=== PATIENT | male | born 1955 | race Caucasian/White ===

== ENCOUNTER 2025-07-29 11:29 | Emergency (ER) | payer OTHER, SELFPAY ==
--- OUTSIDE RECORDS SUMMARY | 2024-08-29 03:00 | XMS_ITS ---
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 * Medical History: Objective: * Vitals: Assessment: Plan: * Treatment: * Billing Information: * Visit Code: * Procedure Codes: * Electronic signature of Prov ider Migration on 07/29/2025 at 12:48 PM AGRICULTURE INTERNSHIP Sign off status: Pending * Provider: Irina Mendoza Date: 0 08/29/2024 Generated for Kamlesh booker/Magy/Nitin on: 1 09/29/2024 12:48 PM AGRICULTURE INTERNSHIP
--- OUTSIDE RECORDS SUMMARY | 2024-08-29 03:00 | XMS_ITS ---
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 * Medical History: Objective: * Vitals: Assessment: Plan: * Treatment: * Billing Information: * Visit Code: * Procedure Codes: * Electronic signature of Prov ider Migration on 07/29/2025 at 12:47 PM CATTLE DIPPER Sign off status: Pending * Provider: Irina castrejon Migration Date: 0 08/29/2024 Generated for Kamlesh booker/Magy/Nitin on: 1 09/29/2024 12:47 PM CATTLE DIPPER
--- OUTSIDE RECORDS SUMMARY | 2024-08-29 10:00 | XMS_ITS ---
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 * Medical History: Objective: * Vitals: Assessment: Plan: * Treatment: * Billing Information: * Visit Code: * Procedure Codes: * Electronic signature of Prov ider Migration on 07/29/2025 at 12:49 PM ELECTRIC KNIFE OPERATOR Sign off status: Pending * Provider: Irina castrejon Migration Date: 0 08/29/2024 Generated for Kamlesh booker/Magy/Nitin on: 1 09/29/2024 12:49 PM ELECTRIC KNIFE OPERATOR
--- OUTSIDE RECORDS SUMMARY | 2024-12-19 05:00 | XMS_ITS ---
Author Organization [facility] Address [address] [place] [address] Care Team Providers Care Nail Technician Name Role Phone Sherine Villagran MD Primary Care Provider Ralph Hernandez [phone] REASON FOR VISIT right radial approach lhc possible ptca 12/19/2024 @ 11am, check in at 9am//gs Encounters Encounter Location Date Provider Diagnosis [facility] [address] [place] [address] 12/19/2024 Ralph Fox Plan Of Treatment No Information Progress Notes * Dougie KEATING SrDOB:1954 (70 yo M)Acc No.[id number]:12/19/2024 [place] Patient: Yanira Dougie guzman Sr Provider: Heath Fox MD :1955 A ge:69 Y S ex:Male Date:12/19/2024 [facility] [facility] [id number] Pcp:Sherine Villagran MD Subjective: * Chief Complaints: * R ight radial approach lhc possible ptca 12/19/2024 @ 11am, check in at 9am//gs Billing Information: * Procedure Codes: * Electronic signature of Joaquin Fox MD on 07/29/2025 at 12:49 PM COMPUTER SALESPERSON RETAIL Sign off status: Pending * Provider: Heath Fox MD Date: 0 12/19/2024 Generated for Kamlesh booker/Magy/Nitin on: 1 09/29/2024 12:49 PM COMPUTER SALESPERSON RETAIL
--- OUTSIDE RECORDS SUMMARY | 2025-01-16 07:15 | XMS_ITS ---
Author Organization [facility] Address [address] [facility] [place] [address] Care Team Providers Care Pin Ticket Machine Operator Name Role Phone Sherine Villagran MD Primary Care Provider Unavaila [facility], Ralph Unavailable [phone] Ladi Conn Unavailable [phone] REASON FOR VISIT 4 WK HFU PER CAMP 12/10/24 RQ Encounters Encounter Location Date Provider Diagnosis [facility] [address] [place] [address], [place] [address] 01/16/2025 Ladi Conn Plan Of Treatment No Information Progress Notes * Dougie KEATING SrDOB:1954 (70 yo M)Acc No.[id number]:01/16/2025 Patient: Yanira Dougie guzman Sr Provider: Dipika Conn NP :1955 A ge:69 Y S ex:Male Date:01/16/2025 Address:[address] [facility], [id number] Pcp:Sherine Villagran MD Subjective: * Chief Complaints: * 4 WK HFU PER CAMP 12/10/24 RQ * Electronic signature of LOBO Steiner, EMBEDDER-C on 07/29/2025 at 12:48 PM COMMERCIAL LOAN ADMINISTRATOR Sign off status: Pending * Provider: Dipika Conn NP Date: 0 01/16/2025 Generated for Printi ng/Farodolfog/eTransmitting on: 1 09/29/2024 12:48 PM COMMERCIAL LOAN ADMINISTRATOR
--- OUTSIDE RECORDS SUMMARY | 2025-05-26 07:30 | XMS_ITS ---
Author Organization [facility] Address [address] [facility] [place] [address] Care Team Providers Care Maintenance And Repair Worker Name Role Phone Sherine Villagran MD Primary Care Provider Ralph Hernandez [phone] Encounters Encounter Location Date Provider Diagnosis [facility] [address] [place] [address], [place] [address] 05/26/2025 Ralph Fox Plan Of Treatment No Information Progress Notes * Dougie KEATING SrDOB:1954 (70 yo M)Acc No.[id number]:05/26/2025 Patient: Dougie Clemons Sr Provider: Heath Fox MD :1955 A ge:70 Y S ex:Male Date:05/26/2025 [facility] [facility] [facility] [id number] Pcp:Sherine Villagran MD Billing Information: * Procedure Codes: * Electronic signature of Joaquin Fox MD on 07/29/2025 at 12:47 PM FREIGHT ENGINEER Sign off status: Pending * Provider: Heath Fox MD Date: Generated for Kamlesh booker/Magy/eTransmitting on: 09/29/2024 12:47 PM FREIGHT ENGINEER
[2025-07-29 11:42] VITALS: BP 169/78; PULSE 62; RESP 14; TEMP 36.4; O2SAT 99; BMI 31.3
--- NOTE | 2025-07-29 11:47 | ECG_ITS ---
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 Measurements Intervals Munday Rate: 56 P: 20 AK: 154 QRS: -20 QRSD: 110 T: 58 QT: 449 QTc: 435 Interpretive Statements SINUS BRADYCARDIA MODERATE ST DEPRESSION [0.05+ mV ST DEPRESSION] No previous ECG available for comparison Electronically Signed On 07-29-2025 21:22:48 FRONT DESK MANAGER by Michelle Moreno M.D. [email or web address]
--- NOTE | 2025-07-29 12:01 | CT_ITS ---
WS: [id number] CT HEAD TECHNIQUE: Noncontrast CT of the head obtained from the skullbase to the vertex. CLINICAL INFORMATION: vertigo COMPARISON: None. DLP: 1120.[address] scans at [facility] use at least one of these dose optimization techniques: automated exposure control; mA and/or kV adjustment per patient size (includes targeted exams where dose is matched to clinical indication); or iterative reconstruction. FINDINGS: No evidence of intracranial hemorrhage or mass effect. Ventricular system and basal cisterns are patent. Mild small vessel changes with mild parenchymal volume loss. No extra-axial fluid collections. No evidence of mass or mass effect. Vascular calcification. Paranasal sinuses and mastoid air cells are well aerated. .Normal visualized soft tissues. CT/CT head wo con* 68024 IMPRESSION: 1. No evidence of intracranial hemorrhage or mass effect. 2. No acute intracranial findings.
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
[2025-07-29 12:26] LABS: Hematocrit 42.0 % (37-53); Hemoglobin 14.20 g/dL (11.27-16.99); Mean Corpuscular HGB Conc 33.8 g/dL (30-55); Mean Corpuscular Hemoglobin 31.8 pg (27-33); Mean Corpuscular Volume 94.0 fl (82-101); Nucleated Red Blood Cells % 0 %; Platelet Count 228 10^3/cmm (157-399); Red Blood Count 4.47 10^6/uL (3.85-5.65); White Blood Count 6.30 10^3/uL (3.29-11.43)
[2025-07-29 12:42] LABS: Alanine Aminotransferase 22 U/L (0-41); Albumin Level 4.5 g/dL (3.5-5.2); Alkaline Phosphatase 52 U/L (40-130); Anion Gap 15.6 (5-19); Aspartate Amino Transferase 22 U/L (0-40); Blood Urea Nitrogen 13 mg/dL (8-23); Calcium 9.5 mg/dL (8.5-10.5); Carbon Dioxide 27 mmol/L (22-29); Chloride 99 mmol/L (98-107); Globulin 2.5 g/dL (1.3-4.6); Glucose 93 mg/dL (65-115); Osmolality Calculated 286 mOsm/kg (285-295); Potassium 3.6 mmol/L (3.5-5.1); Sodium 138 mmol/L (136-145); Total Protein 7.0 g/dL (6.6-8.7)
--- OUTSIDE RECORDS SUMMARY | 2025-07-29 12:47 | XMS_ITS | Encounter Summary ---
Author Organization [facility] Address 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
--- OUTSIDE RECORDS SUMMARY | 2025-07-29 12:47 | XMS_ITS | Encounter Summary ---
Author Organization [facility] Address 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
--- OUTSIDE RECORDS SUMMARY | 2025-07-29 12:47 | XMS_ITS | Encounter Summary ---
Author Organization [facility] Address 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
--- OUTSIDE RECORDS SUMMARY | 2025-07-29 12:47 | XMS_ITS | Encounter Summary ---
Author Organization [facility] Address 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
--- OUTSIDE RECORDS SUMMARY | 2025-07-29 12:47 | XMS_ITS | Encounter Summary ---
Author Organization [facility] Address 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
--- OUTSIDE RECORDS SUMMARY | 2025-07-29 12:47 | XMS_ITS | Encounter Summary ---
Author Organization [facility] Address 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
--- OUTSIDE RECORDS SUMMARY | 2025-07-29 12:47 | XMS_ITS | Encounter Summary ---
Author Organization [facility] Address 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
--- OUTSIDE RECORDS SUMMARY | 2025-07-29 12:47 | XMS_ITS | Encounter Summary ---
Author Organization [facility] Address [address] [place] [address] Care Team Providers Care Able Bodied Seaman Name Role Phone Solo Valdez DO Primary Care Provider Encounter Details Date Type Department Care Team (Late st Contact Info) Description 10/20/[address] 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
--- OUTSIDE RECORDS SUMMARY | 2025-07-29 12:47 | XMS_ITS | Patient Health Record ---
Author Organization [facility] Address [address] [place], [place] [address] Care Team Providers Care Load Dropper Name Role Phone Sherine Nair MD Primary Care Provider Unavaila HOPE Cherry Unavailable [phone] Migration, Provider Unavailable Unavailable Allergies Allergen (clinical drug ingredient) Drug/Non Drug Allergy documented on EMR Reaction Allergy Type Onset Date Status Iodinated contrast media (substance) Iodinated Diagnostic Agents rash Drug Allergy Active Reason For Referral No Information Medications Medication SIG (Take, Route, Frequency, Duration) Notes Start Date End Date Status Co Q 10 100 MG 400 mg Orally daily Active FLUoxetine HCl 10 MG 1 capsule Orally On ce a day Active Spironolactone 25 MG 1 tablet Orally Onc e a day Active Pantoprazole Sodium 20 MG 1 tablet Orall y Once a day Active Rosuvastatin Calcium 40 MG 1 tablet Oral ly Once a day Active Lisinopril 20 MG 1 tablet Orally Evening Active amLODIPine Besylate 10 MG 1 tablet Orally Morning Active Aspirin Adult Low Dose 81 MG 1 tablet Or ally Once a day Active Fish Oil 1000 MG 1 capsule Orally Twi ce a day Active Plavix 75 MG 1 tablet Orally Once a day; Duration: 30 day(s) Active Immunizations Vaccine Route Administration Date Status Comme nts Influenza (whole), CPT 83039 Inactive Unknown 08/14/2015 Administered Influenza, seasonal, injectable (split), for 3 yrs and up IM Intramuscular 06/01/2021 Administered [facility]# [id number] Pt waited 20 minutes after injection with no ASE noted. Problems Problem Type SNOMED Code ICD Code Onset Dates Problem Status W/U Status Risk Notes Problem Essential hypertension (48218922) Essential hypertension (I10) Active confirmed Problem Prostatectomy (77434966) Status post prostatectomy (Z90.79) Active confirmed Problem Mild cognitive impairment (942773416) Mild cognitive impairment (G31.84) Active confirmed Problem Cancer of prostate (317214293) Cancer of prostate (C61) Active confirmed Problem Occlusion of right vertebral artery (377710060009410) Occlusion of right vertebral artery (I65.01) Active confirmed Problem SI - Stress incontinence (81529097) Stress incontinence (N39.3) Active confirmed Problem History of polyp of colon (situation) (134703145) History of colon polyps (Z86.010) Active confirmed Problem Vertebrobasilar insufficiency (49909532) Vertebrobasilar insufficiency (G45.0) Active confirmed Problem Occlusion and stenosis of multiple and bilateral cerebral arteries (831104540) Bilateral carotid artery stenosis (I65.23) Active confirmed Problem Dizziness (020976199) Dizziness (R42) Active confirmed Problem Erectile dysfunction (236092302) Erectile dysfunction (N52.9) Active confirmed Problem Malignant tumor of prostate (500575888) Prostate cancer (C61) Active confirmed Problem Gastroesophageal reflux disease (910926453) Gastroesophageal reflux disease, esophagitis presence not specified (K21.9) Active confirmed Encounters Encounter Location Date Provider Diagnosis [facility], [facility] [address] [place] [address] 08/29/2024 Provider Migration [facility], [facility] [address] [facility] [address] [place] [address] 08/29/2024 Provider Migration [facility], [facility] [address] [facility] [address] [place] [address] 08/29/2024 Provider Migration Plan Of Treatment Pending Test Test Name Order Date PSA, total (cpt 83421) 05/04/2023 Blood Urea Nitrogen (BUN) 04514 09/02/19 22 Creatinine (B) 61013 09/02/2021 PSA Diagnostic--73804 03/03/2021 PSA Diagnostic--87692 06/29/2021 Biopsy-Pathology 12/31/2020 CTA Neck w/ + w/o Contrast-50741 022 US Carotid Doppler Bilateral-36759 09/01 US Carotid Doppler Bilateral-24172 09/01 US Carotid Doppler Bilateral-19740 09/01 Electrocardiogram 12 Lead Tracing-99348 02/24/2021 Electrocardiogram (EKG) - 19204 08/22/19 23 zzCOLONOSCOPY, HIGH RISK SCREENING--G010 5 10/25/2019 Future Test Test Name Order Date CTA Neck w/ + w/o Contrast-85541 021 PSA Diagnostic--45990 12/09/2022 Insurance Providers Payer Name Payer Address Payer Phone Subscriber Number Group Number Insured Name Patient Relationship to Insured Coverage Start Date Coverage End Date [employer] [address] [place], [place] [id number] [phone] [id number] Dougie Stockton Self - patient is the insured [place] Medicare [address] [place], [place] [phone] [id number] Dougie Stockton Self - patient is the insured for Life Secondary to Medicare [address] [place], [place] [phone] [id number] Kath, Dougie Self - patient is the insured Medical (General) History Medical History History ICD Code Arthritis Hypertensive disorder, systemic arterial Polyp of colon melanoma - [facility] degenerative disc disease anxeity depression Hyperlipidemia GERD mild mi on stress test tremor to R hand - saw dr sorto memory loss Prostate Cancer Covid vaccine x2 Surgical History Surgery Date(Month/Year) cholecystectomy - dr rangel excision of melanoma, back polyp removed Prostatectomy + Prostate CA RALP with bilateral pelvic lymph node re section Hospitalization History Reason Date(Month/Year) See surgical history gallbladder
--- OUTSIDE RECORDS SUMMARY | 2025-07-29 12:48 | XMS_ITS | Encounter Summary ---
Author Organization [facility] Address 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
--- OUTSIDE RECORDS SUMMARY | 2025-07-29 12:48 | XMS_ITS | Encounter Summary ---
Author Organization [facility] Address [address] [place] [address] Care Team Providers Care Um Specialist Name Role Phone Solo Valdez DO Primary Care Provider [phone] Encounter Details Date Type Department Care Team (Late st Contact Info) Description 12/21/[address] 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
--- OUTSIDE RECORDS SUMMARY | 2025-07-29 12:48 | XMS_ITS | Encounter Summary ---
Author Organization [facility] Address 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
--- OUTSIDE RECORDS SUMMARY | 2025-07-29 12:48 | XMS_ITS | Patient Health Record ---
Author Organization [facility] Address [address] [place] [address] Care Team Providers Care University Administrative Assistant Name Role Phone Sherine Villagran MD Primary Care Provider Unavaila héctor Fox, Ralph Unavailable [phone] Ladi Conn Unavailable [phone] Marshall Clayton Unavailable [phone] Sherley Mazariegos Unavailable [phone] Allergies Allergen (clinical drug ingredient) Drug/Non Drug Allergy documented on EMR Reaction Allergy Type Onset Date Status Iodinated contrast media (substance) Iodinated Diagnostic Agents rash Drug Allergy Active Results Component Value Reference Range Flag Notes Schedule Confirmation Reviewed date:12/23/2024 07:59:12 AM Interpretation: Performing Lab: Notes/Report: Heart Cath Lt poss PTCA Schedule Confirmation Reviewed date:12/11/2024 08:23:56 AM Interpretation: Performing Lab: Notes/Report: Heart Cath Lt poss PTCA Prothrombin Time 09557 Reviewed date:12/23/2024 07:59:22 AM Interpretation: Performing Lab: Notes/Report: ProTime 10.4 9.1-11.9 SEC Normal Range : 9.1-11.9 INR .98 .90-1.20 Therapeutic Range: 2.0-3.0 Therapaeutic Range for heart valve replacement: 2.5-3.50 Partial Thromboplastin Time 03590 Reviewed date:12/23/2024 07:59:22 AM Interpretation: Performing Lab: Notes/Report: PTT 22.4 22.6-31.8 SEC LOW Critical Value Starting at > 100. Therapeutic Range: 60-100. zzzHeart Cath Lt poss PTCA Reviewed date:12/23/2024 07:59:22 AM Interpretation: Performing Lab: Notes/Report: ief=[id number]&org=iSite Schedule Confirmation Reviewed date:12/11/2024 08:23:56 AM Interpretation: Performing Lab: Notes/Report: Heart Cath Lt poss PTCA Schedule Confirmation Reviewed date:12/11/2024 08:23:56 AM Interpretation: Performing Lab: Notes/Report: Heart Cath Lt poss PTCA Schedule Confirmation Reviewed date:12/11/2024 08:23:56 AM Interpretation: Performing Lab: Notes/Report: Heart Cath Lt poss PTCA zzzHeart Cath Lt poss PTCA Reviewed date:12/23/2024 07:59:12 AM Interpretation: Performing Lab: Notes/Report: See Below For Report This report was dictated outside of the Cia[employer] system. Read See Below For Report WBC Auto Diff--85182 Reviewed date:12/23/2024 07:59:22 AM Interpretation: Performing Lab: Notes/Report: Added by Discern Rules Neutro Auto% 93.2 40.0-70.0 % HI Lymph Auto% 5.4 22.0-44.0 % LOW Freestone Auto% .9 3.0-7.0 % LOW Eos Auto% .0 2.0-4.0 % LOW Baso Auto% 0.1 0.0-1.0 % NRBC% .00 .00-.20 /100 intact WBC's Neutro Abs 10.41 .80-7.70 HI Absolute Neutrophil Count 34794 NA Lymph Abs .60 .10-4.10 Freestone Abs .10 .20-1.00 LOW Eos Abs .00 .00-.40 Baso Abs .01 .00-.20 NRBC# .00 .00-.20 Imm Gran Abs .04 .00-.10 Imm Gran% .4 .0-.4 % CBC Reflex Man Diff 53355, 8 5007 Reviewed date:12/23/2024 07:59:22 AM Interpretation: Performing Lab: Notes/Report: WBC 11.2 4.5-11.0 X10'3 HI RBC 4.44 4.50-5.90 X10'6 LOW Hgb 13.9 13.5-17.5 G/DL Hct 41.7 41.0-53.0 % MCV 93.9 80.0-100.0 FL MCH 31.3 27.0-31.0 PG HI MCHC 33.3 31.0-37.0 G/DL Platelet 219 150-400 X10'3 RDW-SD 43.0 35.0-49.0 FL RDW-CV 12.2 12.2-15.6 % MPV 10.6 9.2-12.0 FL Review Auto Diff Conf Basic Metabolic Panel (BMP) 80557 Reviewed date:12/23/2024 07:59:22 AM Interpretation: Performing Lab: Notes/Report: Sodium 135 136-145 MMOL/L LOW Potassium 4.0 3.5-5.1 MMOL/L Chloride 101 98-107 MMOL/L CO2 26.6 20.0-31.0 MMOL/L Glucose Serum 164 71-110 MG/DL HI Testing p erformed at [facility], [address] [place] [address] [place] [address]. CLIA ID#: [id number] BUN 16 7-21 MG/DL Creat 1.01 .57-1.17 MG/DL Use of this assay is not recommended for patients undergoing treatment with phenindione, due to the potential for falsely depressed results. U-nzcflg-o-benzoquinon e imine (NAPQI) is a metabolite of acetaminophen, NAPQI concentrations of apparoximately 10 mg/L correlation to toxic levels of acetaminophen demonstrates a greater than or equil to 10% change in results. NAPQI concentrations greater than this may lead to falsely depressed results for patient samples. GFR 78.8 NA Calculation pe rformed from GFR calculator provided by the [employer]. Glomerular Filtration rate(GRF) is the best overall index of kidney function. Normal GFR varies according to age,sex, body size, and declines with age. The National [employer] recommends using the CKD-EPI Creatinine Equation(2020) to estimate GFR. Anion Gap 11 5-15 BUN/Creat Ratio 15.8 12.0-20.0 % Calcium 9.8 8.7-10.4 MG/DL Osmo Serum,Calculated 285 280-300 MOSM/KG Lipid Panel Reflex DLDL 8003 1 56583 Reviewed date:12/23/2024 07:59:22 AM Interpretation: Performing Lab: Notes/Report: Trig 87 NA 0-4 yr 34-112 5-9 yr 32-105 Borderline High 150-199 Desirable <150 15-19 yr 39-132 10-14 yr 37-131 Very high >=500 High 200-499 Classification Guidelines:Triglyceride s 0-4 yr 22-99 Children: Male Adults: >20yrs 10-14 yr 32-125 5-9 yr 30-101 Children: Female 15-19 yr 37-148 Chol 167 <=200 MG/DL HDL 71 30-72 MG/DL Male: Female: >=20y 40-59 5-9y 38-75 10-14y 37-74 10-14y 37-70 5-9y 36-73 15-19y 30-63 >=20y 40-59 15-19y 35-74 Reference Ranges:HDL CH/HDL 2.3 0.0-4.9 RATIO LDL 78 0-130 MG/DL LDL result is inaccurate , if Trig is >400 mg/dl. See DLDL result. Reason For Referral Reason AUTH CARDI OLOGY/ EVAL & TREAT/ 1 [facility] Diagnosis 1 Nonrheumatic mitral (valve) insufficiency (I34.0) Referring Provider First Name Elma Ko Referring Provider Last Name [place] Referring Provider Speciality [place] Affairs Referred Organization [facility] Referred Provider Ralph Fox Referred Address [address] [place] [id number], Referred Provider Specialty Cardiology Referral Priority Routine Medications Medication SIG (Take, Route, Frequency, Duration) Notes Start Date End Date Status Aspirin Adult Low Dose 81 MG Tablet Delayed Release 1 tablet Orally Once a day Active Co Q 10 100 MG Capsule 400 mg Orally daily Active Rosuvastatin Calcium 40 MG Tablet 1 tablet Orally Once a day Active amLODIPine Besylate 10 MG Tablet 1 tablet Orally Morning Acti ve Spironolactone 25 MG Tablet 1 tablet Ora lly Once a day Active Pantoprazole Sodium 20 MG Tablet Delayed Release 1 tablet Orally Once a day Active Plavix 75 MG Tablet 1 tablet Orally Once a day; Duration: 30 day(s) Active Magnesium Citrate 200 MG Tablet as directed Orally Active Memantine HCl 5 MG Tablet 1 tablet Orall y Once a day Active FLUoxetine HCl 10 MG Capsule 1 capsule O rally Once a day Active Lisinopril 20 MG Tablet 1 tablet Orally Evening Active Fish Oil 1000 MG Capsule 1 capsule Orall y Twice a day Active Immunizations Vaccine Route Administration Date Status Comme nts Influenza (whole), CPT 63693 Inactive Unknown 08/14/2015 Administered Influenza, seasonal, injectable (split), for 3 yrs and up IM Intramuscular 06/01/2021 Administered [facility]# 72931-685-28 Pt waited 20 minutes after injection with no ASE noted. Social History Tobacco Use: Social History Observation Description Date Details (start date - stop date) Former Smoker NA - NA Social History Depression Screening Social Info Question Answer Notes PHQ-9 Little interest or pleasure in doing thin gs Not at all Feeling down, depressed, or hopeless Not at all Trouble falling or staying asleep, or sleeping t oo much Not at all Feeling tired or having little energy Not at all Poor appetite or overeating Not at all Feeling bad about yourself, or that you are a failure, or have let yourself or your family down Not at all Trouble concentrating on thi ngs, such as reading the newspaper or watching television Not at all Moving or speaking so slowly that other people could have noticed. Or the opposite ? being so fidgety or restless that you have been moving around a lot more than usual Not at all Thoughts that you would be b maury off , or of hurting yourself in some way Not at all Total Score 0 Drugs/Alcohol: Social Info Question Answer Notes Alcohol Screen (Audit-C) Did you have a drink containing alcohol in the past year? Yes How often did you have a drink containing alcohol in the past year? 2 to 4 times a month (2 points) How many drinks did you have on a typical day when you were drinking in the past year? 1 or 2 drinks (0 point) Points 2 Interpretation Negative Drugs Have you used drugs other than those for medical reasons in the past 12 months? No Caffeine Intake: admits Drug/Alcohol: Social Info Question Answer Notes AUDIT-C (Standard) Did you have a drink containing alcohol in the past year? Yes How often did you have six or more drinks on one occasion in the past year? Less than monthly (1 point) How many drinks did you have on a typical day when you were drinking in the past year? Declined to specify (0 point) How often did you have a drink containing alcohol in the past year? Declined to specify (0 point) Points 1 Interpretation Negative Tobacco Use: Social Info Question Answer Notes xTobacco Use/Smoking Are you a former smoker How long has it been since you last smoked? 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 Soci al Section Notes: alcohol - rarely caffeine - coffe daily alcohol - rarely caffeine - coffe daily alcohol - rarely caffeine - coffe daily Problems Problem Type SNOMED Code ICD Code Onset Dates Problem Status W/U Status Risk Notes Problem Atherosclerotic heart disease of [place] coronary artery without angina pectoris (669346301312438) Atherosclerotic heart disease of [place] coronary artery without angina pectoris (I25.10) Active confirmed Problem Mitral valve disorder (86296725) Nonrheumatic mitral (valve) insufficiency (I34.0) Active confirmed Problem Essential hypertension (26966758) Essential hypertension (I10) Active confirmed Problem Malignant tumor of prostate (912516764) Prostate cancer (C61) Active confirmed Problem Gastroesophageal reflux disease (683849085) Gastroesophageal reflux disease, esophagitis presence not specified (K21.9) Active confirmed Problem Dizziness (847365228) Dizziness (R42) Active confirmed Problem History of polyp of colon (situation) (906833565) History of colon polyps (Z86.010) Active confirmed Problem Erectile dysfunction (694532401) Erectile dysfunction (N52.9) Active confirmed Problem SI - Stress incontinence (66919103) Stress incontinence (N39.3) Active confirmed Problem Occlusion and stenosis of multiple and bilateral cerebral arteries (243469821) Bilateral carotid artery stenosis (I65.23) Active confirmed Problem Mild cognitive impairment (097344149) Mild cognitive impairment (G31.84) Active confirmed Problem Occlusion of right vertebral artery (678804997067089) Occlusion of right vertebral artery (I65.01) Active confirmed Problem Prostatectomy (49744847) Status post prostatectomy (Z90.79) Active confirmed Problem Vertebrobasilar insufficiency (53467515) Vertebrobasilar insufficiency (G45.0) Active confirmed Vital Signs Heart Rate 65 /min 12/10/2024 Height-cm 175.26 cm 12/10/2024 Oximetry 98 % 12/10/2024 Blood pressure diastolic 82 mm Hg 12/10/2024 Weight-kg 98.02 kg 12/10/2024 Height 69 in 12/10/2024 Blood pressure systolic 146 mm Hg 12/10/2024 Weight 216.1 lbs 12/10/2024 BMI 31.91 kg/m2 12/10/2024 Procedures Procedure Date Ordered Date Performed Result Body Sit e Coronary Angio with Left Heart Cath 12/10/2024 12/10/2024 N/A Encounters Encounter Location Date Provider Diagnosis [facility] [address] [address] 12/19/2024 [facility] [address] [place] [address] 12/10/2024 [facility] Atherosclerotic hear t disease of [place] coronary artery without angina pectoris I25.10 ; Nonrheumatic mitral (valve) insufficiency I34.0 ; Bilateral carotid artery stenosis I65.23 ; Essential hypertension I10 ; Dizziness R42 ; Fatigue R53.83 and SOB (shortness of breath) R06.[address] [place] [address] 12/10/2024 [facility] [address] [place] [address] 08/24/2024 [facility] [address] [place] [address], [place] [address] 08/24/2024 Sherley Mazariegos Assessments Encounter Date Diagnosis (ICD Code) Assessment Notes Treatment Notes Treatment Clinical Notes Section Notes 12/10/2024 Atherosclerotic heart disease of [place] coronary artery without angina pectoris (ICD-10 - I25.10) 12/10/2024 Nonrheumatic mitral (valve) insufficiency (ICD-10 - I34.0) 12/10/2024 Bilateral carotid artery stenosis (ICD-10 - I65.23) 12/10/2024 Essential hypertension (ICD-10 - I10) 12/10/2024 Dizziness (ICD-10 - R42) 12/10/2024 Fatigue (ICD-10 - R53.83) 12/10/2024 SOB (shortness of breath) (ICD-10 - R06.02) 12/10/2024 Other Medical Decision-making process: At this point recommending heart catheterization given the progressive symptoms' limitation he has. Risk include not limited to arterial thrombosis dissection hematoma consult renal failure CVA IA answer despite the risk patient agreed proceed with further plans been results these diagnostic studies. If the cardiac studies are unremarkable further evaluation/be warranted, but I am very concerned about angina, and he has known coronary disease. [id number] VALID 10/03/24 - 06/08/25, [facility] Comprehensive Plan Of Treatment Pending Test Test Name Order Date Prothrombin Time 18769 12/10/2024 Basic Metabolic Panel (BMP) 25011 2024 Blood Urea Nitrogen (BUN) 66724 09/02/19 22 Creatinine (B) 42670 09/02/2021 Lipid Panel Reflex DLDL 03734, 76958 Partial Thromboplastin Time 25046 2024 PSA Diagnostic--94992 03/03/2021 PSA Diagnostic--49227 06/29/2021 CBC Ref[place] Diff 60155, 15111 025 CTA Neck w/ + w/o Contrast-59003 022 US Carotid Doppler Bilateral-02051 09/01 US Carotid Doppler Bilateral-17828 09/01 Electrocardiogram 12 Lead Tracing (EKG)- 82691 12/10/2024 Electrocardiogram 12 Lead Tracing (EKG)- 00889 02/24/2021 Biopsy-Pathology 12/31/2020 Electrocardiogram (EKG) - 75109 12/11/19 25 Insurance Providers Payer Name Payer Address Payer Phone Subscriber Number Group Number Insured Name Patient Relationship to Insured Coverage Start Date Coverage End Date [employer] [address] [place] [address] [id number] Dougie Stockton Self - patient is the insured [place] Medicare [address] [place] [phone] [id number] Dougie Stockton Self - patient is the insured for Life Secondary to Medicare [address] [place] [address] [phone] [id number] Dougie Stockton Self - patient is the insured Medications Administered Medication Instructions Date of Administration Dosage Notes Gentamicin Sulfate 12/31/2020 80 mg [facility] 04 09-1207-15 Medical (General) History Medical History History ICD Code Arthritis Hypertensive disorder, systemic arterial Polyp of colon melanoma - [facility] degenerative disc disease anxeity depression Hyperlipidemia GERD mild mi on stress test tremor to R hand - saw dr sorto memory loss Prostate Cancer Covid vaccine x2 Surgical History Surgery Date(Month/Year) excision of melanoma, back polyp removed Prostatectomy + Prostate CA RALP with bilateral pelvic lymph node re section cholecystectomy - dr rangel 2016 Appendectomy 06/2024 [facility] - 1. The main left coron miley is actually separate ostial origins. 2. Left anterior descending and its diagonal vessels are normal as is the origin of the vessel. 3. The circumflex vessel is a dominant system. The circumflex origin is normal. Marginal vessels are normal. AV groove vessel is normal and the posterior descending vessel is normal. 4. The right coronary is a nondominant vessel and it is normal. Left ventricle: Left ventricle is normal in size. Wall motion overall is normal. The ejection fraction is at 60%. This is a normal heart catheterization study. 12.19.2024 Hospitalization History Reason Date(Month/Year) BH - right lower quadrant pa in x 2 days that is gotten progressively worse. 07/05-
--- OUTSIDE RECORDS SUMMARY | 2025-07-29 12:48 | XMS_ITS | Clinical Summary ---
Author Organization [facility] Administrative Offices Address [address] [place] [address] Care Team Providers Care Transfusion Nurse Name Role Phone Solo Valdez DO Primary Care Provider [phone] Allergies Active Allergy Reactions Criticality Noted Date Comments Atenolol Bradycardia Medium 11/28/2008 Atorvastatin Other (See Comments) 12/10/2012 Iodinated Contrast Media Rash Low 09/19/2008 Medications [id number]- fish oil (Fish OiL) 1,000 mg Capsule 1,000 mg. 07/25/2023 Active rosuvastatin (CRESTOR) 40 mg tablet 40 mg. 07/25/2023 Active pantoprazole (PROTONIX) 20 mg Tablet, Delayed Release (E.C.) 20 mg. 07/25/2023 Acti ve aspirin (ECOTRIN EC) 81 mg Tablet, Delayed Release (E.C.) 324 mg. 06/21/2021 Acti ve clopidogreL (PLAVIX) 75 mg Tablet 75 mg. 07/25/2023 Active Active Problems Problem Noted Date Diagnosed Date Retinal tear of right eye, s/p LRP 202212/14/19 Bilateral retinal detachment , subclinical, s/p LR 12/14/2023 OU 12/14/2023 Combined form of age-related cataract, both eyes 12/14/2023 Encounters Date Type Department Care Team Description 04/29/2025 External Device Data STL ABSTRACTION Provider, Abstract from Last 3 Months Family History Relation Name Status Comments Father cancer Alive Maternal Grandmother diabetes Mother diabetes Alive Sister lupus Social History Tobacco Use Types Packs/Day Years Used Date Smoking Tobacco: Never Tobacco Cessation:Counseling Given: Not Answered Sex and Gender Information Value Date Recorded Sex Assigned at Not on file 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 Gender Identity Not on file Sexual Orientation Not on file Plan of Treatment Health Maintenance Due Date Last Done Comments COLORECTAL SCREENING 1998 FIT-DNA Q 3 years 1998 Flex Sig/CT Colonography Q 5 years 1998 Colorectal Cancer Screening 04/26/2003 FIT/FOBT Q 1 year 04/26/2003 04/26/2002, , 04/28/1999, Additional history exists ZOSTER VACCINE (2 of 3) 12/16/2014 10/21/2014 PNEUMOCOCCAL VACCINE 50+ YEA RS (2 of 2 - PCV) 09/12/2015 09/12/2014 DTAP/TDAP/TD VACCINES (2 - T d or Tdap) 08/31/2022 08/31/2012, 08/22/2002 INFLUENZA VACCINE (#1) 2025 , 05/12/2022, 05/07/2020, Additional history exists COVID-19 Vaccine (7 - 2024-2 6 season) 2025 06/18/2024, 05/12/2022, 11/22/2021, Additional history exists RSV VACCINE (60+ or ) (1 - 1-dose 75+ series) 2028 Insurance MEDICARE PART A AND B [employer] Care Teams Transfusion Nurse Relationship Specialty Start Date End Date Solo Valdez DO * PCP - General 12/21/01
--- OUTSIDE RECORDS SUMMARY | 2025-07-29 12:48 | XMS_ITS | Encounter Summary ---
Author Organization [facility] Address 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
--- OUTSIDE RECORDS SUMMARY | 2025-07-29 12:48 | XMS_ITS | Encounter Summary ---
Author Organization [facility] Address 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
--- OUTSIDE RECORDS SUMMARY | 2025-07-29 12:48 | XMS_ITS | Encounter Summary ---
Author Organization [facility] Address 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
--- OUTSIDE RECORDS SUMMARY | 2025-07-29 12:48 | XMS_ITS | Encounter Summary ---
Author Organization [facility] Address 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
--- OUTSIDE RECORDS SUMMARY | 2025-07-29 12:48 | XMS_ITS | Encounter Summary ---
Author Organization [facility] Address 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
--- OUTSIDE RECORDS SUMMARY | 2025-07-29 12:49 | XMS_ITS | Encounter Summary ---
Author Organization [facility] Address 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
--- OUTSIDE RECORDS SUMMARY | 2025-07-29 12:49 | XMS_ITS | Encounter Summary ---
Author Organization [facility] Address 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
--- OUTSIDE RECORDS SUMMARY | 2025-07-29 12:49 | XMS_ITS | Encounter Summary ---
Author Organization [facility] Address 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
--- OUTSIDE RECORDS SUMMARY | 2025-07-29 12:49 | XMS_ITS | Encounter Summary ---
Author Organization [facility] Address [address] [place] [address] Care Team Providers Care Engineering Secretary Name Role Phone Solo Valdez DO Primary Care Provider Encounter Details Date Type Department Care Team (Late st Contact Info) Description 04/17/2001 Outpatient Historical [facility] Primary Care - [address] [place] [phone] Solo Valdez DO * Social History Tobacco Use Types Packs/Day Years Used Date Smoking Tobacco: Never Assessed Sex and Gender Information Value Date Recorded Sex Assigned at Not on file Legal Sex Male 2:50 AM OPAL MINER Gender Identity Not on file Sexual Orientation Not on file documented as of this encounter Plan of Treatment Not on file documented as of this encounter Visit Diagnoses Not on filedocumented in this encounter Care Teams Engineering Secretary Relationship Specialty Start Date End Date Solo Valdez DO * PCP - General 12/21/01 documented as of this encounter
--- OUTSIDE RECORDS SUMMARY | 2025-07-29 12:49 | XMS_ITS | Encounter Summary ---
Author Organization [facility] Address 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
--- OUTSIDE RECORDS SUMMARY | 2025-07-29 12:49 | XMS_ITS | Encounter Summary ---
Author Organization [facility] Address [address] [place] [address] Care Team Providers Care Spa Consultant Name Role Phone Solo Valdez DO Primary Care Provider [phone] Encounter Details Date Type Department Care Team (Late st Contact Info) Description 08/22/2001 Outpatient Historical [facility] Primary Care - [address] [place] [phone] Solo Valdez DO * Social History Tobacco Use Types Packs/Day Years Used Date Smoking Tobacco: Never Assessed Sex and Gender Information Value Date Recorded Sex Assigned at Not on file Legal Sex Male 2:[address] Gender Identity Not on file Sexual Orientation Not on file documented as of this encounter Plan of Treatment Not on file documented as of this encounter Visit Diagnoses Not on filedocumented in this encounter Care Teams Spa Consultant Relationship Specialty Start Date End Date Solo Valdez DO * PCP - General 12/21/01 documented as of this encounter
--- OUTSIDE RECORDS SUMMARY | 2025-07-29 12:49 | XMS_ITS | Encounter Summary ---
Author Organization [facility] Address 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
--- OUTSIDE RECORDS SUMMARY | 2025-07-29 12:49 | XMS_ITS | Encounter Summary ---
Author Organization [facility] Address [address] [place] [address] Care Team Providers Care Writing Center Director Name Role Phone Solo Valdez DO Primary Care Provider Encounter Details Date Type Department Care Team (Late st Contact Info) Description 12/25/2000 Outpatient Historical [facility] Primary Care - [address] [place] [phone] Solo Valdez DO * Social History Tobacco Use Types Packs/Day Years Used Date Smoking Tobacco: Never Assessed Sex and Gender Information Value Date Recorded Sex Assigned at Not on file Legal Sex Male 2:50 AM SEAMER PANTY HOSE Gender Identity Not on file Sexual Orientation Not on file documented as of this encounter Plan of Treatment Not on file documented as of this encounter Visit Diagnoses Not on filedocumented in this encounter Care Teams Writing Center Director Relationship Specialty Start Date End Date Solo Valdez DO * PCP - General 12/21/01 documented as of this encounter
--- OUTSIDE RECORDS SUMMARY | 2025-07-29 12:49 | XMS_ITS | Encounter Summary ---
Author Organization [facility] Address [address] [place] [address] Care Team Providers Care Refrigeration Installer Name Role Phone Solo Valdez DO Primary Care Provider Encounter Details Date Type Department Care Team (Late st Contact Info) Description 07/25/2001 Outpatient Historical [facility] Primary Care - [address] [place] [phone] Solo Valdez DO * Social History Tobacco Use Types Packs/Day Years Used Date Smoking Tobacco: Never Assessed Sex and Gender Information Value Date Recorded Sex Assigned at Not on file Legal Sex Male 2:50 AM RESIN FILTERER Gender Identity Not on file Sexual Orientation Not on file documented as of this encounter Plan of Treatment Not on file documented as of this encounter Visit Diagnoses Not on filedocumented in this encounter Care Teams Refrigeration Installer Relationship Specialty Start Date End Date Solo Valdez DO * PCP - General 12/21/01 documented as of this encounter
[2025-07-29 13:03] VITALS: BP 168/87; PULSE 64; O2SAT 97
== END 2025-07-29 13:10 | disposition home or self-care (01) ==
PROVIDERS: Emergency Provider Emergency Medicine; PCP Family Medicine
DX: R42 Dizziness and giddiness (principal); I10 Essential (primary) hypertension; E78.5 Hyperlipidemia, unspecified; F32.A Depression, unspecified; Z79.02 Long term (current) use of antithrombotics/antiplatelets
CPT/HCPCS: 36415; 70450; 80053; 85025; 93005; 99284; J8597